=== PATIENT | female | born 1985 | race Caucasian/White ===

== ENCOUNTER 2017-12-16 15:50 | Outpatient (CLI) | payer OTHER ==
[2015-09-24 18:16] VITALS: BP 120/58
--- NOTE | 2017-12-16 18:32 | Diagnostic Imaging Report ---
BRIT NGUYEN [facility] [address] [facility] [address] 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 No fracture or dislocation. Talar dome is intact. Lateral soft tissue swelling. Small joint effusion. Impression: Lateral soft tissue swelling. Small joint effusion. No fracture. Electronically signed on Dec 16, 2017 4:22:13 PM CAR RETARDER OPERATOR by: Ashu GROVER
== END 2017-12-16 15:52 ==
LOC: RAD 15:50
PROVIDERS: ATTEND Nurse Practitioner Family
DX: M25.571 Pain in right ankle and joints of right foot (principal)
CPT/HCPCS: 73610

== ENCOUNTER 2018-05-04 12:54 | Outpatient (CLI) | payer OTHER ==
[2015-09-24 18:16] VITALS: BP 120/58
--- NOTE | 2018-05-04 15:04 | Diagnostic Imaging Report ---
SHANNAN SOTO [facility] [address] [facility].[address] [address] Report Submission Date: May 04, 2018 2:10:53 PM CDT Patient Study Name: KAROLYN SANCHEZ Date: May 04, 2018 1:29:25 PM CDT Modality Type: US Gender: F Description: : 81 Institution: [facility] Physician: SHANNAN SOTO Examination: Ultrasound left vein History: LLEV ULTRASOUND 6 WEEKS POST DELIVERY OF BABY LT LEG SWELLING BEHIND KNEE. Findings: Sonographic evaluation of the left lower extremity venous system from the groin to the popliteal fossa inclusive. Normal compressibility. No luminal filling defect. Normal waveforms and response to augmentation. No popliteal region fluid collection. Impression: No evidence for deep venous thrombosis. Electronically signed on May 04, 2018 2:10:53 PM CDT by: Ashu GROVER
== END 2018-05-04 12:55 ==
LOC: RAD 12:54
PROVIDERS: ATTEND Family Medicine
DX: M79.605 Pain in left leg (principal); R60.0 Localized edema; O90.9 Complication of the puerperium, unspecified
CPT/HCPCS: 93971